=== PATIENT | female | born 1985 | race Caucasian/White ===

== ENCOUNTER 2018-11-16 12:58 | Day surgery (SDC) | payer OTHER ==
[~2018-11-16 12:58] MED LIST: CEFAZOLIN 1 GM INJ; GLYCOPYRROLATE 0.4 MG INJ; LIDOCAINE 2% (SDV) 5 ML INJ; MEPERIDINE 100 MG INJ; METOCLOPRAMIDE 10 MG INJ; MIDAZOLAM 1 MG/ML 2 ML INJ; NEOSTIGMINE 3 MG/3 ML SYRINGE; ONDANSETRON 4 MG INJ; PROPOFOL 20 ML; ROCURONIUM 50 MG INJ; ROPIVACAINE 0.5 % 30 ML VIAL; SUCCINYLCHOLINE CHLORIDE 100 MG/5 ML SYG IV
[2018-11-16 13:43] LABS: ADD MAN DIFF? NO
[2018-11-16 13:45] LABS: WHITE BLOOD COUNT 10.5 10^3/ul (4.8-10.8)
[2018-11-16 13:45] LABS: BASOPHIL # 0.1 10^3/ul (0.0-0.1); BASOPHILS % 0.6 % (0.0-2.0); EOSINOPHILS # 0.2 10^3/ul (0.0-0.5); EOSINOPHILS % 1.7 % (0.0-7.0); HEMATOCRIT 45.3 % (37.0-47.0); HEMOGLOBIN 15.1 g/dl (12.0-16.0); LYMPHOCYTES # 2.4 10^3/ul (0.8-2.9); LYMPHOCYTES % 23.2 % (15.0-51.0); MEAN CORPUSCULAR HEMOGLOBIN 29.3 pg (29.0-33.0); MEAN CORPUSCULAR HGB CONC 33.3 g/dl (32.0-37.0); MEAN PLATELET VOLUME 9.4 fl (7.4-10.4); MONOCYTE # 0.5 10^3/ul (0.3-0.9); NEUTROPHIL # 7.3 10^3/ul (1.6-7.5); NEUTROPHILS % 69.3 % (39.0-77.0); PLATELET COUNT 306 10^3/UL (140-415); RED BLOOD COUNT 5.15 10^6/ul (4.20-5.40); RED CELL DISTRIBUTION WIDTH 12.9 % (11.5-14.5)
[2018-11-16 14:05] LABS: INR 0.95; PARTIAL THROMBOPLASTIN TIME 27.3 Sec (23.0-35.0); PROTIME 12.8 Sec (11.9-14.9)
[2018-11-16 14:06] LABS: ALANINE AMINOTRANSFERASE 18 IU/L (13-69); ALBUMIN 4.5 g/dl (3.3-4.9); ALBUMIN/GLOBULIN RATIO 1.15; ALKALINE PHOSPHATASE 86 IU/L (42-121); ANION GAP 13 (5-13); ASPARTATE AMINO TRANSFERASE 19 IU/L (15-46); BILIRUBIN,INDIRECT 0.6 mg/dl (0-1.1); BILIRUBIN,TOTAL 0.6 mg/dl (0.2-1.3); BLOOD UREA NITROGEN 16 mg/dl (7-20); CALCIUM 9.6 mg/dl (8.4-10.2); CARBON DIOXIDE 23 mmol/L (21-31); CHLORIDE 106 mmol/L (97-110); CREATININE 0.73 mg/dl (0.44-1.00); Estimated GFR > 60 mL/min (>60); GLUCOSE 96 mg/dl (70-220); POTASSIUM 4.2 mmol/L (3.5-5.1); SODIUM 142 mmol/L (135-144); TOTAL PROTEIN 8.4 g/dl (6.1-8.1)
[2018-11-16] MEDS ORDERED: SOD CHLORIDE 0.9% 1,000 ML IV (15:00)
[2018-11-16] MEDS: CEFAZOLIN 2 GM/50 ML (PMX) 50 ML IVPB (15:00)
[2018-11-16] MEDS ORDERED: FENTAnyl 50 MCG/ML VIAL (16:28)
[2018-11-16] MEDS ORDERED: ALBUTEROL 0.083% (NEB) 2.5 MG/3 ML AMP HHN (16:30)
[2018-11-16] MEDS ORDERED: MEPERIDINE 25 MG INJ IV (16:30)
[2018-11-16] MEDS ORDERED: HYDROmorphONE 1 MG/5 ML IV SYRINGE IV (16:30)
[2018-11-16] MEDS ORDERED: DIPHENHYDRAMINE 50 MG INJ IV (16:30)
[2018-11-16] MEDS ORDERED: METOCLOPRAMIDE 10 MG INJ IV (16:30)
[2018-11-16] MEDS ORDERED: ROPIVACAINE 0.2% 20 ML VIAL (16:38)
[2018-11-16] MEDS: BUPIVACAINE 0.25% (MPF) 30 ML INJ (16:57)
[2018-11-16] MEDS ORDERED: SUCCINYLCHOLINE CHLORIDE 100 MG/5 ML SYG IV (17:13)
[2018-11-16] MEDS ORDERED: ROCURONIUM 50 MG INJ (17:13)
[2018-11-16] MEDS ORDERED: PROPOFOL 20 ML (17:13)
[2018-11-16] MEDS ORDERED: CEFAZOLIN 1 GM INJ (17:13)
[2018-11-16] MEDS ORDERED: SUGAMMADEX SODIUM 200 MG/2 ML VIAL IV (17:13)
[2018-11-16] MEDS ORDERED: LIDOCAINE 100 MG SYRINGE (17:13)
[2018-11-16] MEDS: HYDROmorphONE 1 MG/5 ML IV SYRINGE IV ×2 (17:37→17:48)
[2018-11-16] MEDS: ONDANSETRON 4 MG INJ IV (17:37)
[2018-11-16] MEDS: FENTAnyl 50 MCG/ML VIAL IV ×2 (17:54→18:02)
[2018-11-16] MEDS: HYDROCODONE/APAP (5/325) TAB PO (18:26)
== END 2018-11-16 19:22 | disposition home or self-care (01) ==
LOC: SDS 12:58
DX: K80.10 Calculus of gallbladder with chronic cholecystitis without obstruction (principal)
CPT/HCPCS: 47562; 80053; 85025; 85610; 85730; 88304